=== PATIENT | male | born 1985 | race Native Hawaiian/Other Pacific Islander ===

== ENCOUNTER 2017-10-30 07:42 | Observation (INO) | payer OTHER ==
[2017-10-30 07:54] VITALS: BMI 25.0
[2017-10-30 07:59] VITALS: RESP 20
--- NOTE | 2017-10-30 08:17 | C.PDOC ---
History Of Present Illness 32 year old male is brought by EMS to the ED for evaluation of witnessed seizure. As per EMS patient had a witnessed seizure while at the gym. Patient states he felt dizzy went to sit down and does not remember having a seizure. Patient reports that in 2001 he has a seizure episode and was placed on medication for 2 and half years. Patient is not currently taking any medications now. EMS states patient was post ictal. Patient denies fever, chills , nausea, vomit, tongue bitting, bowel incontinence. Time Seen by Provider: 10/30/17 07:44 Chief Complaint (Nursing): Seizure History Per: Patient, EMS History/Exam Limitations: no limitations Recent Seizure Activity Began: Just Before Arrival Number Of Seizures: One Length Of Seizures (Duration): Unknown Quality Of Seizure: Generalized Precipitating Factor(s): None Post-ictal Period: Yes (per EMS) Severity: None Recent travel outside of the [place]: No Additional History Per: Patient, EMS Past Medical History Reviewed: Historical Data, Nursing Documentation, Vital Signs Vital Signs: Last Vital Signs Temp 97.8 F 10/30/17 07:58 Pulse 101 H 10/30/17 07:58 Resp 20 10/30/17 07:58 BP 120/44 L 10/30/17 07:58 Pulse Ox 97 10/30/17 10:09 - Medical History PMH: Seizures Surgical History: No Surg Hx Family History: States: Unknown Family Hx - Social History Hx Alcohol Use: Yes Hx Substance Use: No - Immunization History Hx Tetanus Toxoid Vaccination: No Hx Influenza Vaccination: No Hx Pneumococcal Vaccination: No Review Of Systems Constitutional: Negative for: Fever, Chills Eyes: Negative for: Vision Change Cardiovascular: Negative for: Chest Pain, Palpitations Respiratory: Negative for: Shortness of Breath Gastrointestinal: Negative for: Nausea, Vomiting Genitourinary: Negative for: Incontinence Neurological: Positive for: Headache. Negative for: Weakness, Numbness, Dizziness Physical Exam - Physical Exam Appears: Non-toxic, No Acute Distress Skin: Normal Color, Warm, Dry Head: Atraumatic, Normacephalic Eye(s): bilateral: Normal Inspection Oral Mucosa: Moist Neck: Normal ROM, Supple Chest: Symmetrical Cardiovascular: Rhythm Regular, No Murmur Respiratory: Normal Breath Sounds, No Rales, No Rhonchi, No Wheezing Gastrointestinal/Abdominal: Soft, No Tenderness, No Guarding, No Rebound Extremity: Normal ROM, No Tenderness, No Swelling Neurological/Psych: Oriented x3, Normal Speech Gait: Steady ED Course And Treatment - Laboratory Results Result Diagrams: 10/30/17 08:44 10/30/17 08:44 ECG: Interpreted By Me, Viewed By Me ECG Rhythm: Sinus Rhythm ECG Interpretation: Normal, No Acute Changes Interpretation Of ECG: normal axis, nornal intervals Rate From EC (BPM) O2 Sat by Pulse Oximetry: 97 (ON RA) Pulse Ox Interpretation: Normal - CT Scan/US CT head Other Rad Studies (CT/US): Read By Radiologist, Radiology Report Reviewed CT/US Interpretation: Date of service: 10/30/2017. PROCEDURE: CT HEAD WITHOUT CONTRAST. HISTORY: seizure. COMPARISON: None available. TECHNIQUE: Axial computed tomography images were obtained through the head/brain without intravenous contrast. Radiation dose: Total exam DLP = 847.65 mGy-cm. This CT exam was performed using one or more of the following dose reduction techniques: Automated exposure control, adjustment of the mA and/or kV according to patient size, and/or use of iterative reconstruction technique. FINDINGS: HEMORRHAGE: No intracranial hemorrhage. BRAIN: No mass effect or edema. Solitary right frontal subcortical nodular calcification common nonspecific. VENTRICLES: Unremarkable. No hydrocephalus. CALVARIUM: Unremarkable. PARANASAL SINUSES: Unremarkable as visualized. No significant inflammatory changes. MASTOID AIR CELLS: Unremarkable as visualized. No inflammatory changes. OTHER FINDINGS: None. IMPRESSION: No intracranial mass , hemorrhage or evidence of acute infarct. Medical Decision Making Medical Decision Making: Impression: seizure Plan: * CT head * EKG * LAbs * UA * * case discussed with neurology corporate travel consultant, Dr. Flores and would like to admit to patient to hospital for mri and eeg. Disposition Discussed With : Ricco Lindsey Doctor Will See Patient In The: Hospital Counseled Patient/Family Regarding: Studies Performed, Diagnosis - Disposition Disposition: HOSPITALIZED Disposition Time: 10:09 Condition: FAIR Forms: [facility] (Armenian) - Clinical Impression Clinical Impression: Seizure - Scribe Statement The provider has reviewed the documentation as recorded by the Scribe Miles Wray All medical record entries made by the Scribe were at my direction and personally dictated by me. I have reviewed the chart and agree that the record accurately reflects my personal performance of the history, physical exam, medical decision making, and the department course for this patient. I have also personally directed, reviewed, and agree with the discharge instructions and disposition.
[2017-10-30 08:49] LABS: BASO % 0.3 % (0.0-2.0); EOS % 0.2 % (0.0-4.0); HEMOGLOBIN 13.9 g/dL (12.0-18.0); LYMPH # 0.8 K/uL (1.0-4.3); LYMPH % 12.2 % (20.0-40.0); MEAN CORPUSCULAR HEMOGLOBIN 30.8 pg (27.0-31.0); MEAN CORPUSCULAR HGB CONC 34.3 g/dL (33.0-37.0); MEAN PLATELET VOLUME 9.8 fL (7.2-11.7); MONO # 0.3 K/uL (0.0-0.8); NEUT # 5.4 K/uL (1.8-7.0); NEUT % 82.3 % (50.0-75.0); RBC 4.5 Mil/uL (4.40-5.90); RED CELL DISTRIBUTION WIDTH 13.2 % (11.5-14.5); WHITE BLOOD COUNT 6.6 K/uL (4.8-10.8)
--- NOTE | 2017-10-30 08:59 | CT ---
Date of service: 10/30/2017 PROCEDURE: CT HEAD WITHOUT CONTRAST. HISTORY: seizure COMPARISON: None available. TECHNIQUE: Axial computed tomography images were obtained through the head/brain without intravenous contrast. Radiation dose: Total exam DLP = 847.65 mGy-cm. This CT exam was performed using one or more of the following dose reduction techniques: Automated exposure control, adjustment of the mA and/or kV according to patient size, and/or use of iterative reconstruction technique. FINDINGS: HEMORRHAGE: No intracranial hemorrhage. BRAIN: No mass effect or edema. Solitary right frontal subcortical nodular calcification common nonspecific. VENTRICLES: Unremarkable. No hydrocephalus. CALVARIUM: Unremarkable. PARANASAL SINUSES: Unremarkable as visualized. No significant inflammatory changes. MASTOID AIR CELLS: Unremarkable as visualized. No inflammatory changes. OTHER FINDINGS: None. IMPRESSION: No intracranial mass, hemorrhage or evidence of acute infarct.
[2017-10-30 09:00] LABS: ALB/GLOB RATIO 1.6 (1.0-2.1); ALBUMIN 4.6 g/dL (3.5-5.0); ALT/SGPT 37 U/L (21-72); AST/SGOT 31 U/L (17-59); BLOOD UREA NITROGEN 12 mg/dL (9-20); CALCIUM 9.4 mg/dl (8.6-10.4); GFR AFRICAN-AMERICAN > 60; GFR NON-AFRICAN AMERICAN > 60
[2017-10-30 09:41] LABS: URINE BILIRUBIN NEGATIVE (NEGATIVE); URINE BLOOD NEGATIVE (NEGATIVE); URINE CLARITY Hazy (Clear); URINE COLOR Yellow (YELLOW); URINE GLUCOSE (UA) NORMAL (Normal); URINE LEUKOCYTE ESTERASE NEG Leu/uL (Negative); URINE PROTEIN 1+ mg/dL (NEGATIVE); URINE UROBILINOGEN NORMAL mg/dL (0.2-1.0)
[2017-10-30] MEDS ORDERED: levETIRAcetam 1,000 MG in Sodium Chloride 0.9% 100 ML IVPB STA (10:00)
[2017-10-30 10:12] LABS: BARBITURATES, UR NEGATIVE (NEGATIVE); BENZODIAZEPINES, UR NEGATIVE (NEGATIVE); OPIATES, UR NEGATIVE (NEGATIVE); PHENCYCLIDINE, UR NEGATIVE (NEGATIVE)
--- NOTE | 2017-10-30 12:41 | MRI ---
Date of service: 10/30/2017 PROCEDURE: MRI BRAIN WITHOUT CONTRAST HISTORY: Seizure COMPARISON: Noncontrast head CT from 10/30/2017 TECHNIQUE: Multiplanar, multisequence MR images of the brain were obtained without intravenous contrast enhancement. FINDINGS: HEMORRHAGE: None DWI: No evidence of an acute or early subacute infarction. BRAIN PARENCHYMA: There is a 6 mm T2/FLAIR hypointense and T1 Iso to hyperintense lesion with moderate surrounding vasogenic edema in the left posterior temporal lobe. There is mild mass effect on the left occipital horn without midline shift or herniation. There is also subcentimeter FLAIR hypointense signal in the right frontal lobe corresponding to the calcification identified on CT scan. VENTRICLES: The ventricles are normal in size, shape and configuration. CRANIUM: There is normal bone marrow signal pattern. ORBITS: Grossly unremarkable. PARANASAL SINUSES/MASTOIDS: There is mild mucosal thickening in the frontal and ethmoid sinuses. The remaining included paranasal sinuses are clear. The mastoid air cells are clear. VASCULAR SYSTEM: There are normal signal voids in the larger intracranial arteries. OTHER FINDINGS: None. IMPRESSION: 6 mm nodular lesion with moderate surrounding vasogenic edema in the left posterior temporal lobe without midline shift or herniation. No hydrocephalus. 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 Neoplasm is a less likely differential consideration. Follow-up MRI with intravenous contrast is recommended for definitive evaluation. Important findings were discussed with Drs. Larry Weinstein and Jackelyn Flores on 10/30/2017 after the scan was performed.
--- NOTE | 2017-10-30 12:43 | CP.PCM.CON ---
History of Present Illness - History of Present Illness History of Present Illness: Neurology consultation ( Dr. Flores's service) CC: Seizure HPI: Patient is a 32 year old male with past medical history of seizure, who was brought to the ED via EMS for witnessed seizure while exercising at the gym. Patient reports that while he was exercising, he suddenly felt dizzy, therefore, he went to go sit down. Patient does not quite recall what happened after he sat down. Patient states that he was diagnosed with seizure disorder at the age of 16 after he is first episode in his sleep and was started on Trileptal, which he took for two years. Patient had 3 more episodes of seizure at age [age] years old while on trileptal; Tegretol was then added to his anti- seizure medication. In addition, patient states that he has had two brain MRI in the past and was told there was a cyst and frontal cortex edema. During the encounter, patient denies any headache, nausea, vomiting, blurry vision, urinary incontinence/ fecal incontinence, tongue bitting. Patient has been off anti-seizure medication for the 2.5 years. PMD: None PMHx: Seizure PSHx: Fungal infection of the left toe FHx: Mother ( Thyroid) -Mother's family: DM Medications: None Allergies: NKDA Social Hx: Lives with roommate. Works for a [employer] company. Denies former and current use of tobacco, ETOH and illicit drugs Review of Systems - Constitutional Constitutional: absent: Chills, Fatigue, Fever, Headache, Weakness - EENT Eyes: absent: Blurred Vision, Change in Vision Ears: Dizziness - Cardiovascular Cardiovascular: absent: Chest Pain, Dyspnea, Orthopnea, Palpitations - Respiratory Respiratory: absent: Dyspnea - Gastrointestinal Gastrointestinal: absent: Abdominal Pain, Nausea, Vomiting - Musculoskeletal Musculoskeletal: absent: Limited Range of Motion, Muscle Cramps, Muscle Weakness , Numbness, Tingling - Neurological Neurological: Dizziness, Memory Loss. absent: Confusion, Focal Weakness, Frequent Falls, Headaches, Paresthesias, Tingling, Weakness - Endocrine Endocrine: absent: Fatigue, Palpitations Past Patient History - Past Social History Smoking Status: Never Smoked - NEUROLOGICAL Hx Seizures: Yes - PSYCHIATRIC Hx Substance Use: No - SURGICAL HISTORY Hx Surgeries: No Meds Allergies/Adverse Reactions: Allergies Allergy/AdvReac Type Severity Reaction Status Date / Time No Known Allergies Allergy Verified 10/30/17 07:54 - Medications Medications: Current Medications Levetiracetam (Keppra) 500 mg PO BID SEE Physical Exam - Constitutional Appears: No Acute Distress - Head Exam Head Exam: ATRAUMATIC, NORMAL INSPECTION - Eye Exam Eye Exam: EOMI, Normal appearance - ENT Exam ENT Exam: Mucous Membranes Moist - Respiratory Exam Respiratory Exam: Clear to Auscultation Bilateral, NORMAL BREATHING PATTERN. absent: Prolonged Expiratory Phase, Rhonchi, Wheezes, Respiratory Distress - Cardiovascular Exam Cardiovascular Exam: REGULAR RHYTHM, +S1, +S2. absent: Systolic Murmur - GI/Abdominal Exam GI & Abdominal Exam: Normal Bowel Sounds, Soft. absent: Distended, Firm, Guarding, Tenderness - Extremities Exam Extremities exam: Positive for: normal inspection. Negative for: calf tenderness, pedal edema - Neurological Exam Neurological exam: Alert, CN II-XII Intact, Normal Gait, Oriented x3, Reflexes Normal - Psychiatric Exam Psychiatric exam: Normal Affect Results - Vital Signs Recent Vital Signs: Last Vital Signs Temp 97.8 F 10/30/17 07:58 Pulse 101 H 10/30/17 07:58 Resp 20 10/30/17 07:58 BP 120/44 L 10/30/17 07:58 Pulse Ox 97 10/30/17 10:12 - Labs Result Diagrams: 10/30/17 08:44 10/30/17 08:44 Labs: Laboratory Results - last 24 hr 10/30/17 10/30/17 10/30/17 07:49 08:44 08:44 WBC 6.6 RBC 4.50 Hgb 13.9 Hct 40.5 MCV 90.0 MCH 30.8 MCHC 34.3 RDW 13.2 Plt Count 194 MPV 9.8 Neut % (Auto) 82.3 H Lymph % (Auto) 12.2 L [place] % (Auto) 5.0 Eos % (Auto) 0.2 Baso % (Auto) 0.3 Neut # (Auto) 5.4 Lymph # (Auto) 0.8 L [place] # (Auto) 0.3 Eos # (Auto) 0.0 Baso # (Auto) 0.0 Sodium 145 Potassium 4.7 Chloride 107 Carbon Dioxide 22 Anion Gap 20 BUN 12 Creatinine 1.1 Est GFR ( Amer) > 60 Est GFR (Non-Af Amer) > 60 POC Glucose (mg/dL) 131 H Random Glucose 67 L Calcium 9.4 Total Bilirubin 0.3 AST 31 ALT 37 Alkaline Phosphatase 48 Total Protein 7.4 Albumin 4.6 Globulin 2.8 Albumin/Globulin Ratio 1.6 Urine Color Urine Clarity Urine pH Ur Specific [place] Urine Protein Urine Glucose (UA) Urine Ketones Urine Blood Urine Nitrate Urine Bilirubin Urine Urobilinogen Ur Leukocyte Esterase Urine WBC (Auto) Urine RBC (Auto) Urine Opiates Screen Urine Methadone Screen Ur Barbiturates Screen Ur Phencyclidine Scrn Ur Amphetamines Screen U Benzodiazepines Scrn U Oth Cocaine Metabols U Cannabinoids Screen 10/30/17 10/30/17 09:28 09:28 WBC RBC Hgb Hct MCV MCH MCHC RDW Plt Count MPV Neut % (Auto) Lymph % (Auto) [place] % (Auto) Eos % (Auto) Baso % (Auto) Neut # (Auto) Lymph # (Auto) [place] # (Auto) Eos # (Auto) Baso # (Auto) Sodium Potassium Chloride Carbon Dioxide Anion Gap BUN Creatinine Est GFR ( Amer) Est GFR (Non-Af Amer) POC Glucose (mg/dL) Random Glucose Calcium Total Bilirubin AST ALT Alkaline Phosphatase Total Protein Albumin Globulin Albumin/Globulin Ratio Urine Color Yellow Urine Clarity Hazy Urine pH 5.0 Ur Specific [place] 1.017 Urine Protein 1+ H Urine Glucose (UA) Normal Urine Ketones Trace Urine Blood Negative Urine Nitrate Negative Urine Bilirubin Negative Urine Urobilinogen Normal Ur Leukocyte Esterase Neg Urine WBC (Auto) 1 Urine RBC (Auto) 2 Urine Opiates Screen Negative Urine Methadone Screen Negative Ur Barbiturates Screen Negative Ur Phencyclidine Scrn Negative Ur Amphetamines Screen Negative U Benzodiazepines Scrn Negative U Oth Cocaine Metabols Negative U Cannabinoids Screen Negative Assessment & Plan (1) Seizure Assessment and Plan: Head CT without contrast: No intracranial mass, hemorrhage or evidence of acute infarct. Solitary right frontal subcortical nodular calcification common nonspecific. Brain w/o contrast: 6 mm nodular lesion with moderate surrounding vasogenic edema in the left posterior temporal lobe without midline shift or herniation. No hydrocephalus. 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 Neoplasm is a less likely differential consideration. Follow-up MRI with intravenous contrast is recommended for definitive evaluation F/u EEG and Brain with contrast: Medications: * Keppra 1,000mg [place] * Keppra 500mg PO BID * Decadron 8mg PO Q12H Status: Acute (2) Neurocysticercosis Assessment and Plan: Based on Brain MRI w/o contrast: 6 mm nodular lesion with moderate surrounding vasogenic edema in the left posterior temporal lobe without midline shift or herniation. No hydrocephalus. 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 Neoplasm is a less likely differential consideration. Follow-up MRI with intravenous contrast is recommended for definitive evaluation F/u Brain with contrast: Consultations: * Infectious disease, Dr. Rhoades---> help appreciated * Management as per recommendation All plans and management discussed with Dr. Flores Status: Acute
--- NOTE | 2017-10-30 12:47 | CP.PCM.HP ---
History of Present Illness - History of Present Illness History of Present Illness: PGY2 Medicine H+P for Dr. Lindsey Patient is a 32 year old male with a past medical history of seizures presenting to the hospital after a witnessed seizure while at the gym. Patient was working out doing hammer-curls when he began to feel dizzy. He attempted to slowly sit himself down when he "blacked out" and can not recall what happened. EMS was called and per ED note, the patient was found in a post-ictal state. Patient experienced his first seizure at the age of 16 [place] He was started on Trileptal, which he took for two years. At the age of [age] years old, he experienced his second seizure. At that time he had multiple seizures and was started on a second agent, Tegretol. He was treated for his seizures until his doctor told him he had a calcified cyst in his brain and discontinued his medications. He has not had another seizure since he was 18 years old. Patient states he currently feels normal and does not know what caused his seizure today. He has no complaints at this time. Denies fevers, chills, nausea, vomiting, diarrhea, constipation, chest pain, shortness of breath, palpitations, abdominal pain, blurry vision, urinary/bowel incontinence or tongue biting. Patient has not taken any anti-epileptic medication since they were discontinued at the age of 18 in 2004. PMD: None PMH: Seizures PSH: Fungal infection of left toe Family: Mother - thyroid, Maternal side has diabetes Social: Denies tobacco, minimal social alcohol (once in last 3 months) and denies illicit drug use Allergies: NKDA Present on Admission - Present on Admission Any Indicators Present on Admission: No Past Patient History - Past Social History Smoking Status: Never Smoked - NEUROLOGICAL Hx Seizures: Yes - PSYCHIATRIC Hx Substance Use: No - SURGICAL HISTORY Hx Surgeries: No Meds Home Medications: Home Medication List Medication Instructions Recorded Confirmed Type Albendazole [Albenza 200 mg Tab] 400 mg PO BID #120 tab 10/31/17 Rx levETIRAcetam [Keppra] 500 mg PO BID #60 tab 10/31/17 Rx Allergies/Adverse Reactions: Allergies Allergy/AdvReac Type Severity Reaction Status Date / Time No Known Allergies Allergy Verified 10/30/17 07:54 Physical Exam - Constitutional Appears: Non-toxic, No Acute Distress - Head Exam Head Exam: ATRAUMATIC, NORMOCEPHALIC - Eye Exam Eye Exam: EOMI, Normal appearance, PERRL. absent: Scleral icterus Pupil Exam: NORMAL ACCOMODATION - ENT Exam ENT Exam: Mucous Membranes Moist - Neck Exam Neck exam: Positive for: Full Rom, Normal Inspection. Negative for: Lymphadenopathy - Respiratory Exam Respiratory Exam: Clear to Auscultation Bilateral, NORMAL BREATHING PATTERN. absent: Accessory Muscle Use, Rales, Rhonchi, Wheezes, Respiratory Distress - Cardiovascular Exam Cardiovascular Exam: REGULAR RHYTHM, +S1, +S2 - GI/Abdominal Exam GI & Abdominal Exam: Normal Bowel Sounds, Soft. absent: Distended, Firm, Guarding, Rebound, Rigid, Tenderness - Extremities Exam Extremities exam: Positive for: normal inspection, pedal pulses present. Negative for: calf tenderness, pedal edema - Neurological Exam Neurological exam: Alert, CN II-XII Intact, Oriented x3 - Psychiatric Exam Psychiatric exam: Normal Affect, Normal Mood - Skin Skin Exam: Dry, Normal Color, Warm Results - Vital Signs Recent Vital Signs: Last Vital Signs Temp 97.8 F 10/30/17 07:58 Pulse 101 H 10/30/17 07:58 Resp 20 10/30/17 07:58 BP 120/44 L 10/30/17 07:58 Pulse Ox 97 10/30/17 10:12 - Labs Result Diagrams: 10/31/17 07:37 10/31/17 07:37 Labs: Laboratory Results - last 24 hr 10/30/17 10/30/17 10/30/17 07:49 08:44 08:44 WBC 6.6 RBC 4.50 Hgb 13.9 Hct 40.5 MCV 90.0 MCH 30.8 MCHC 34.3 RDW 13.2 Plt Count 194 MPV 9.8 Neut % (Auto) 82.3 H Lymph % (Auto) 12.2 L [place] % (Auto) 5.0 Eos % (Auto) 0.2 Baso % (Auto) 0.3 Neut # (Auto) 5.4 Lymph # (Auto) 0.8 L [place] # (Auto) 0.3 Eos # (Auto) 0.0 Baso # (Auto) 0.0 Sodium 145 Potassium 4.7 Chloride 107 Carbon Dioxide 22 Anion Gap 20 BUN 12 Creatinine 1.1 Est GFR ( Amer) > 60 Est GFR (Non-Af Amer) > 60 POC Glucose (mg/dL) 131 H Random Glucose 67 L Calcium 9.4 Total Bilirubin 0.3 AST 31 ALT 37 Alkaline Phosphatase 48 Total Protein 7.4 Albumin 4.6 Globulin 2.8 Albumin/Globulin Ratio 1.6 Urine Color Urine Clarity Urine pH Ur Specific [place] Urine Protein Urine Glucose (UA) Urine Ketones Urine Blood Urine Nitrate Urine Bilirubin Urine Urobilinogen Ur Leukocyte Esterase Urine WBC (Auto) Urine RBC (Auto) Urine Opiates Screen Urine Methadone Screen Ur Barbiturates Screen Ur Phencyclidine Scrn Ur Amphetamines Screen U Benzodiazepines Scrn U Oth Cocaine Metabols U Cannabinoids Screen 10/30/17 10/30/17 09:28 09:28 WBC RBC Hgb Hct MCV MCH MCHC RDW Plt Count MPV Neut % (Auto) Lymph % (Auto) [place] % (Auto) Eos % (Auto) Baso % (Auto) Neut # (Auto) Lymph # (Auto) [place] # (Auto) Eos # (Auto) Baso # (Auto) Sodium Potassium Chloride Carbon Dioxide Anion Gap BUN Creatinine Est GFR ( Amer) Est GFR (Non-Af Amer) POC Glucose (mg/dL) Random Glucose Calcium Total Bilirubin AST ALT Alkaline Phosphatase Total Protein Albumin Globulin Albumin/Globulin Ratio Urine Color Yellow Urine Clarity Hazy Urine pH 5.0 Ur Specific [place] 1.017 Urine Protein 1+ H Urine Glucose (UA) Normal Urine Ketones Trace Urine Blood Negative Urine Nitrate Negative Urine Bilirubin Negative Urine Urobilinogen Normal Ur Leukocyte Esterase Neg Urine WBC (Auto) 1 Urine RBC (Auto) 2 Urine Opiates Screen Negative Urine Methadone Screen Negative Ur Barbiturates Screen Negative Ur Phencyclidine Scrn Negative Ur Amphetamines Screen Negative U Benzodiazepines Scrn Negative U Oth Cocaine Metabols Negative U Cannabinoids Screen Negative Assessment & Plan - Assessment and Plan (Free Text) Plan: Seizure Neurology Consulted, Dr. Flores - help appreciated Head CT without contrast (10/30): * No intracranial mass, hemorrhage or evidence of acute infarct. Solitary right frontal subcortical nodular calcification common nonspecific. Brain MRI w/o contrast (10/30): * 6 mm nodular lesion with moderate surrounding vasogenic edema in the left posterior temporal lobe without midline shift or herniation. No hydrocephalus. 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 Neoplasm is a less likely differential consideration. Follow -up MRI with intravenous contrast is recommended for definitive evaluation Medications: * Keppra 1,000mg IVPB bolus once * Keppra 500mg PO BID * Decadron 8mg PO q12h Suspected Neurocysticerosis Brain MRI w/o contrast (10/30): * 6 mm nodular lesion with moderate surrounding vasogenic edema in the left posterior temporal lobe without midline shift or herniation. No hydrocephalus. 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 Neoplasm is a less likely differential consideration. Follow -up MRI with intravenous contrast is recommended for definitive evaluation. Brain MRI w/ contrast: pending All medical management per Dr. Lindsey
[2017-10-30] MEDS ORDERED: Gadodiamide 287 mg/ml 20 ml IV ONE (15:05)
--- NOTE | 2017-10-30 16:14 | MRI ---
Date of service: 10/30/2017 PROCEDURE: MRI BRAIN WITH AND WITHOUT CONTRAST HISTORY: Seizures COMPARISON: Noncontrast CT scan and MRI performed earlier the same day. TECHNIQUE: Multiplanar, multisequence MR images of the brain were obtained with and without intravenous contrast enhancement. FINDINGS: HEMORRHAGE: None DWI: No evidence of an acute or early subacute infarction. BRAIN PARENCHYMA: There is a 9 x 10 x 9 mm nodular enhancing lesion in the left posterior temporal lobe. There is moderate surrounding vasogenic edema. There are no other supra or infratentorial enhancing lesions. There is no abnormal leptomeningeal enhancement. ENHANCEMENT: No abnormal leptomeningeal enhancement. VENTRICLES: The ventricles are normal in size, shape and configuration. CRANIUM: There is normal bone marrow signal pattern. ORBITS: Grossly unremarkable. PARANASAL SINUSES/MASTOIDS: Clear VASCULAR SYSTEM: There are normal signal voids in the larger intracranial arteries. OTHER FINDINGS: None . IMPRESSION: 10 mm nodular lesion with moderate surrounding vasogenic edema in the left posterior temporal lobe. 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
[2017-10-31 07:45] VITALS: BP 102/55; TEMP 97.9; O2SAT 99
[2017-10-31 07:45] LABS: BASO % 0.2 % (0.0-2.0); HEMOGLOBIN 14.6 g/dL (12.0-18.0); LYMPH % 11.4 % (20.0-40.0); MEAN CELL VOLUME 90.1 fL (80.0-94.0); MEAN CORPUSCULAR HGB CONC 34.5 g/dL (33.0-37.0); MEAN PLATELET VOLUME 9.8 fL (7.2-11.7); MONO # 0.1 K/uL (0.0-0.8); MONO % 1.4 % (0.0-10.0); NEUT # 7.3 K/uL (1.8-7.0); RBC 4.69 Mil/uL (4.40-5.90); RED CELL DISTRIBUTION WIDTH 13.4 % (11.5-14.5); WHITE BLOOD COUNT 8.4 K/uL (4.8-10.8)
[2017-10-31 08:09] LABS: ALB/GLOB RATIO 1.6 (1.0-2.1); ALBUMIN 4.7 g/dL (3.5-5.0); ALT/SGPT 35 U/L (21-72); AST/SGOT 34 U/L (17-59); BLOOD UREA NITROGEN 14 mg/dL (9-20); CALCIUM 9.8 mg/dl (8.6-10.4); GFR AFRICAN-AMERICAN > 60; GFR NON-AFRICAN AMERICAN > 60
[2017-10-31 08:35] VITALS: PULSE 52
--- NOTE | 2017-10-31 10:16 | CP.PCM.PN ---
Subjective - Date & Time of Evaluation Date of Evaluation: 10/31/17 Time of Evaluation: 07:50 - Subjective Subjective: Neurology progress note ( Dr. Flores's service) Patient was seen and examined at bedside. Patient reports that he is doing well. Patient denies headache, blurry vision, dizziness, confusion, numbness/ tingling, or difficulty with ambulation. Objective - Vital Signs/Intake and Output Vital Signs (last 24 hours): Temp Pulse Resp BP Pulse Ox 97.9 F 52 L 20 102/55 L 99 10/31/17 07:00 10/31/17 08:33 10/31/17 07:00 10/31/17 07:00 10/31/17 08:33 - Medications Medications: Current Medications Dexamethasone (Decadron) 8 mg PO BID [facility] Last Admin: 10/31/17 09:47 Dose: 8 mg Levetiracetam (Keppra) 500 mg PO BID [facility] Last Admin: 10/31/17 09:47 Dose: 500 mg - Labs Labs: 10/31/17 07:37 10/31/17 07:37 - Constitutional Appears: Well, No Acute Distress - Head Exam Head Exam: ATRAUMATIC, NORMAL INSPECTION - Eye Exam Eye Exam: EOMI, Normal appearance - ENT Exam ENT Exam: Mucous Membranes Moist - Respiratory Exam Respiratory Exam: Clear to Ausculation Bilateral, NORMAL BREATHING PATTERN. absent: Rhonchi, Wheezes, Respiratory Distress - Cardiovascular Exam Cardiovascular Exam: REGULAR RHYTHM, +S1, +S2. absent: Murmur - GI/Abdominal Exam GI & Abdominal Exam: Soft, Normal Bowel Sounds. absent: Distended, Firm, Guarding, Rigid, Tenderness - Extremities Exam Extremities Exam: Normal Inspection. absent: Calf Tenderness, Joint Swelling, Pedal Edema, Tenderness - Neurological Exam Neurological Exam: Alert, Awake, CN II-XII Intact, Normal Gait, Oriented x3, Reflexes Normal Neuro motor strength exam: Left Upper Extremity: 5, Right Upper Extremity: 5, Left Lower Extremity: 5, Right Lower Extremity: 5 - Psychiatric Exam Psychiatric exam: Anxious - Skin Skin Exam: Normal Color Assessment and Plan (1) Seizure Assessment & Plan: Head CT without contrast: No intracranial mass, hemorrhage or evidence of acute infarct. Solitary right frontal subcortical nodular calcification common nonspecific. Brain w/o contrast: 6 mm nodular lesion with moderate surrounding vasogenic edema in the left posterior temporal lobe without midline shift or herniation. No hydrocephalus. 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 Neoplasm is a less likely differential consideration. Follow-up MRI with intravenous contrast is recommended for definitive evaluation Brain with contrast: 10 mm nodular lesion with moderate surrounding vasogenic edema in the left posterior temporal lobe. 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 F/u EEG Medications: * Keppra 500mg PO BID * Decadron 8mg PO Q12H Status: Acute (2) Neurocysticercosis Assessment & Plan: Based on Brain MRI w/o contrast: 6 mm nodular lesion with moderate surrounding vasogenic edema in the left posterior temporal lobe without midline shift or herniation. No hydrocephalus. 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 Neoplasm is a less likely differential consideration. Follow-up MRI with intravenous contrast is recommended for definitive evaluation F/u Brain with contrast: 10 mm nodular lesion with moderate surrounding vasogenic edema in the left posterior temporal lobe. 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 Consultations: * Infectious disease, Dr. Rhoades---> help appreciated * Management as per recommendation - Albendazole 400mg PO Q12H - Decadron 8mg PO BID Discharge plan: Albendazole 400mg PO BID, F/u with Dr. Rhoades in two weeks Decadron 2mg PO Q12H, for first 5 days and Prednisone 10mg PO Q12H for second 5 days, f/u with Dr. Flores in 4 weeks Stable for discharge as per neurology Thank you for the consultation All plans and management discussed with Dr. Flores Status: Acute
--- NOTE | 2017-10-31 11:40 | CP.PCM.CON ---
History of Present Illness - History of Present Illness History of Present Illness: 32 year old male with a past medical history of seizures presenting to the hospital after a witnessed seizure while at the gym. Patient was working out doing hammer-curls when he began to feel dizzy. He attempted to slowly sit himself down when he "blacked out" and can not recall what happened. EMS was called and per ED note, the patient was found in a post-ictal state. Patient experienced his first seizure at the age of 16 in [place]. He was started on Trileptal, which he took for two years. At the age of [age] years old, he experienced his second seizure. At that time he had multiple seizures and was started on a second agent, Tegretol. He was treated for his seizures until his doctor told him he had a calcified cyst in his brain and discontinued his medications. He has not had another seizure since he was 18 years old. P Patient has not taken any anti-epileptic medication since they were discontinued at the age of 18 in 2004. Brain MRI read as possible cystercercosis PMH: Seizures PSH: Fungal infection of left toe Family: Mother - thyroid, Maternal side has diabetes Social: Denies tobacco, minimal social alcohol (once in last 3 months) and denies illicit drug use Allergies: NKDA Review of Systems - Review of Systems All systems: reviewed and no additional remarkable complaints except - Constitutional Constitutional: As Per HPI - EENT Eyes: absent: As Per HPI, Blind Spots, Blurred Vision, Change in Vision, Decreased Night Vision, Diplopia, Discharge, Dry Eye, Exophthalmos, Floaters, Irritation, Itchy Eyes, Loss of Peripheral Vision, Pain, Photophobia, Requires Corrective Lenses, Sees Flashes, Spots in Vision, Tunnel Vision, Other Visual Disturbances, Loss of Vision, Other Ears: absent: As Per HPI, Decreased Hearing, Ear Discharge, Ear Pain, Tinnitus, Abnormal Hearing, Disequilibrium, Dizziness, Other Nose/Mouth/Throat: absent: As Per HPI, Epistaxis, Nasal Congestion, Nasal Discharge, Nasal Obstruction, Nasal Trauma, Nose Pain, Post Nasal Drip, Sinus Pain, Sinus Pressure, Bleeding Gums, Change in Voice, Dental Pain, Dry Mouth, Dysphagia, Halitosis, Hoarsness, Lip Swelling, Mouth Lesions, Mouth Pain, Odynophagia, Sore Throat, Throat Swelling, Tongue Swelling, Facial Pain, Neck Pain, Neck Mass, Other - Cardiovascular Cardiovascular: absent: As Per HPI, Acrocyanosis, Chest Pain, Chest Pain at Rest , Chest Pain with Activity, Claudication, Diaphoresis, Dyspnea, Dyspnea on Exertion, Edema, Irregular Heart Rhythm, Pain Radiating to Arm/Neck/Jaw, Leg Edema, Leg Ulcers, Lightheadedness, Orthopnea, Palpitations, Paroxysmal Nocturnal Dyspnea, Pedal Edema, Radiating Pain, Rapid Heart Rate, Slow Heart Rate, Syncope, Other - Respiratory Respiratory: absent: As Per HPI, Cough, Dyspnea, Hemoptysis, Dyspnea on Exertion , Wheezing, Snoring, Stridor, Pain on Inspiration, Chest Congestion, Excessive Mucous Production, Change in Mucous Color, Pain with Coughing, Other - Gastrointestinal Gastrointestinal: absent: As Per HPI, Abdominal Pain, Belching, Bloating, Change in Bowel Habits, Change in Stool Character, Coffee Ground Emesis, Constipation, Cramping, Diarrhea, Dyspepsia, Dysphagia, Early Satiety, Excessive Flatus, Fecal Incontinence, Heartburn, Hematemesis, Hematochezia, Loose Stools, Melena, Nausea, Odynophagia, Temesmus, Vomiting, Other - Genitourinary Genitourinary: absent: As Per HPI, Change in Urinary Stream, Difficulty Urinating, Dysuria, Flank Pain, Hematuria, Pyuria, Nocturia, Urinary Incontinence, Urinary Frequency, Urinary Hesitance, Urinary Urgency, Voiding Freq/Small Amts, Freq UTI, Hx Renal/Bladder Calculi, Hx /Renal Surgery, Bladder Distension, Other - Musculoskeletal Musculoskeletal: absent: As Per HPI, Abnormal Gait, Arthralgias, Atrophy, Back Pain, Deformity, Joint Swelling, Limited Range of Motion, Loss of Height, Muscle Cramps, Muscle Weakness, Myalgias, Neck Pain, Numbness, Radiating Pain into Limb, Stiffness, Tingling, Other - Integumentary Integumentary: absent: As Per HPI, Acne, Alopecia, Bleeding Lesions, Change in Hair, Change in Nails, Change in Pigmentation, Changing Lesions, Dry Skin, Erythema, Furuncle, Hirsutism, Lesions, New Lesions, Non-Healing Lesions, Photosensitivity, Pruritus, Rash, Skin Pain, Skin Ulcer, Sores, Striae, Swelling , Unusual Bruising, Wounds, Jaundice, Other - Neurological Neurological: As Per HPI - Psychiatric Psychiatric: absent: As Per HPI, Abnormal Sleep Pattern, Anhedonia, Anxiety, Auditory Hallucinations, Behavioral Changes, Change in Appetite, Change in Libido, Confusion, Depression, Difficulty Concentrating, Hallucinations, Homicidal Ideation, Hopelessness, Irritability, Memory Loss, Mood Swings, Panic Attacks, Paranoia, Suicidal Ideation, Visual Hallucinations, Tactile Hallucinations, Other - Endocrine Endocrine: absent: As Per HPI, Change in Body Appearance, Change in Libido, Cold Intolorance, Deepening of Voice, Excessive Sweating, Fatigue, Flushing, Heat Intolorance, Increase in Ring/Shoe/Hat Size, Palpitations, Polydipsia, Polyphagia, Polyuria, Other - Hematologic/Lymphatic Hematologic: absent: As Per HPI, Easy Bleeding, Easy Bruising, Lymphadenopathy, Other Past Patient History - Past Social History Smoking Status: Never Smoked - NEUROLOGICAL Hx Seizures: Yes - PSYCHIATRIC Hx Substance Use: No - SURGICAL HISTORY Hx Surgeries: No Meds Allergies/Adverse Reactions: Allergies Allergy/AdvReac Type Severity Reaction Status Date / Time No Known Allergies Allergy Verified 10/30/17 07:54 - Medications Medications: Current Medications Dexamethasone (Decadron) 8 mg PO BID [facility] Last Admin: 10/31/17 09:47 Dose: 8 mg Levetiracetam (Keppra) 500 mg PO BID [facility] Last Admin: 10/31/17 09:47 Dose: 500 mg Physical Exam - Constitutional Appears: Non-toxic, Chronically Ill - Head Exam Head Exam: NORMOCEPHALIC - Eye Exam Eye Exam: PERRL - ENT Exam ENT Exam: Mucous Membranes Dry - Neck Exam Neck exam: Negative for: Lymphadenopathy - Respiratory Exam Respiratory Exam: Decreased Breath Sounds - Cardiovascular Exam Cardiovascular Exam: REGULAR RHYTHM - GI/Abdominal Exam GI & Abdominal Exam: Diminished Bowel Sounds, Soft - Rectal Exam Rectal Exam: Deferred - Exam Exam: NORMAL INSPECTION - Extremities Exam Extremities exam: Negative for: pedal edema - Back Exam Back exam: absent: CVA tenderness (L), CVA tenderness (R) - Neurological Exam Neurological exam: Alert, CN II-XII Intact, Oriented x3, Reflexes Normal - Psychiatric Exam Psychiatric exam: Normal Mood Results - Vital Signs Recent Vital Signs: Last Vital Signs Temp 97.9 F 10/31/17 07:00 Pulse 52 L 10/31/17 08:33 Resp 20 10/31/17 07:00 BP 102/55 L 10/31/17 07:00 Pulse Ox 99 10/31/17 08:33 - Labs Result Diagrams: 10/31/17 07:37 10/31/17 07:37 Labs: Laboratory Results - last 24 hr 10/30/17 10/31/17 10/31/17 07:49 07:37 07:37 WBC 8.4 RBC 4.69 Hgb 14.6 Hct 42.2 MCV 90.1 MCH 31.0 MCHC 34.5 RDW 13.4 Plt Count 217 MPV 9.8 Neut % (Auto) 87.0 H Lymph % (Auto) 11.4 L Bollinger % (Auto) 1.4 Eos % (Auto) 0.0 Baso % (Auto) 0.2 Neut # (Auto) 7.3 H Lymph # (Auto) 1.0 Bollinger # (Auto) 0.1 Eos # (Auto) 0.0 Baso # (Auto) 0.0 Sodium 141 Potassium 4.8 Chloride 106 Carbon Dioxide 22 Anion Gap 18 BUN 14 Creatinine 1.0 Est GFR ( Amer) > 60 Est GFR (Non-Af Amer) > 60 POC Glucose (mg/dL) 131 H Random Glucose 120 H Calcium 9.8 Total Bilirubin 0.5 AST 34 ALT 35 Alkaline Phosphatase 45 Total Protein 7.7 Albumin 4.7 Globulin 3.0 Albumin/Globulin Ratio 1.6 - Impressions Impression: Brain MRI w/o contrast: 6 mm nodular lesion with moderate surrounding vasogenic edema in the left posterior temporal lobe without midline shift or herniation. No hydrocephalus. 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 Neoplasm is a less likely differential consideration. Follow-up MRI with intravenous contrast is recommended for definitive evaluation will treat empirically for cystercercosis will need close follow up Assessment & Plan (1) Neurocysticercosis Status: Acute (2) Seizure Status: Acute
--- NOTE | 2017-10-31 16:12 | CP.PCM.PN ---
Subjective - Date & Time of Evaluation Date of Evaluation: 10/31/17 Time of Evaluation: 09:25 - Subjective Subjective: PGY2 Medicine Note for Dr. Lindsey Patient seen and examined this morning at bedside. No acute events over night. He is feeling well and has absolutely no complaints. He has not experienced any seizure activity. He denies fevers, chills, nausea, vomiting, diarrhea, constipation, chest pain, shortness of breath, palpitations, abdominal pain, headaches, vision changes, numbness or tingling. Objective - Vital Signs/Intake and Output Vital Signs (last 24 hours): Temp Pulse Resp BP Pulse Ox 97.9 F 52 L 20 102/55 L 99 10/31/17 07:00 10/31/17 08:33 10/31/17 07:00 10/31/17 07:00 10/31/17 08:33 - Labs Labs: 10/31/17 07:37 10/31/17 07:37 - Constitutional Appears: Non-toxic, No Acute Distress - Head Exam Head Exam: NORMAL INSPECTION - Eye Exam Eye Exam: Normal appearance - ENT Exam ENT Exam: Mucous Membranes Moist - Neck Exam Neck Exam: Lymphadenopathy - Respiratory Exam Respiratory Exam: Clear to Ausculation Bilateral, NORMAL BREATHING PATTERN. absent: Accessory Muscle Use, Rales, Rhonchi, Wheezes, Respiratory Distress - Cardiovascular Exam Cardiovascular Exam: REGULAR RHYTHM, +S1, +S2 - GI/Abdominal Exam GI & Abdominal Exam: Soft. absent: Distended, Firm, Guarding, Rigid, Tenderness - Extremities Exam Extremities Exam: absent: Calf Tenderness, Pedal Edema - Neurological Exam Neurological Exam: Alert, Awake, CN II-XII Intact, Oriented x3 Neuro motor strength exam: Left Upper Extremity: 5, Right Upper Extremity: 5, Left Lower Extremity: 5, Right Lower Extremity: 5 - Psychiatric Exam Psychiatric exam: Normal Affect, Normal Mood - Skin Skin Exam: Dry, Warm Assessment and Plan - Assessment and Plan (Free Text) Plan: Seizure Neurology Consulted, Dr. Flores - help appreciated Head CT without contrast (10/30): * No intracranial mass, hemorrhage or evidence of acute infarct. Solitary right frontal subcortical nodular calcification common nonspecific. Brain MRI w/o contrast (10/30): * 6 mm nodular lesion with moderate surrounding vasogenic edema in the left posterior temporal lobe without midline shift or herniation. No hydrocephalus. 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 Neoplasm is a less likely differential consideration. 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 Rhoades - help appreciated * Started on Albendazole 400mg PO BID * Cysticercus IgG AB pending Brain MRI w/o contrast (10/30): * 6 mm nodular lesion with moderate surrounding vasogenic edema in the left posterior temporal lobe without midline shift or herniation. No hydrocephalus. 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 Neoplasm is a less likely differential consideration. Follow -up MRI with intravenous contrast is recommended for definitive evaluation. Brain MRI w/ and w/o contrast (10/30): * 10 mm nodular lesion with moderate surrounding vasogenic edema in the left posterior temporal lobe. 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 HIV negative DISPO: Patient discharged on 10/31/17 with the following instructions. Patient is to be discharged home per Dr. Lindsey. Patient is to follow up with his primary care physician within one week of discharge. If patient does not have a primary care physician, he can follow up in the [facility] located in the [facility]. Patient is to follow up with Dr. Flores (Neurology) within two weeks of discharge. Please call and schedule an appointment. - If possible, bring copies of previous MRIs from [place] with you to Dr. Flores' s office so the images can be compared. Patient is to follow up with Dr. Rhoades (Infectious Disease) within two weeks of discharge. Please call and schedule an appointment. Patient is to take medications as prescribed. - Keppra 500mg by mouth twice per day - taking for seizures - Albendazole 400mg by mouth twice per day - taking for potential infection in brain - Days 1-5, patient is to take Decadron 2mg twice a day, then stop. - Days 6-10, patient is to take Prednisone 10mg twice a day, then stop. It was stressed to patient that he needs strict, close follow-up. Patient states he understands and agrees. If patient experiences any new or worsening symptoms, please go directly to the nearest emergency department. All medical management per Dr. Lindsey
--- NOTE | 2017-11-01 10:28 | CARD ---
APPROVED REPORT Date of service: 10/30/2017 EKG Measurement Heart [id number] <Conclusion> Normal sinus rhythm Normal ECG
== END 2017-10-31 15:42 | disposition home or self-care (01) ==
LOC: C.ER 07:42 → C.6T 10:07
PROVIDERS: ADMIT Internal Medicine Pulmonary Disease; ATTEND Internal Medicine Pulmonary Disease
DX: G40.909 Epilepsy, unspecified, not intractable, without status epilepticus (principal); B69.0 Cysticercosis of central nervous system; Z79.899 Other long term (current) drug therapy; Z83.3 Family history of diabetes mellitus
CPT/HCPCS: 36415; 70450; 70551; 70552; 71046; 80053; 80324; 80345; 80346; 80349; 80353; 80358; 80361; 81001; 82948; 83992; 85025; 86682; 86703; 95812; 99285; A9579; G0378; J1953; J8540